=== PATIENT | female | born 2000 | race African-American/Black ===

== ENCOUNTER 2020-06-26 05:50 | Observation (INO) ==
--- NOTE | 2020-06-24 16:41 | Anesthesiology Consultation ---
Date of Service June 24, 2020 Assessment & Plan (1) Encounter for pre-operative examination: Chart Review Chart Review: Acceptable Risk for Surgery (pending preop Covid testing vs rapid Scott test DOS ) and Patient NOT seen in Pre Admission Testing - Check test AM DOS Per nursing assessment 06/24/2020, patient traveled to [place] 05/30/20- 06/07/20 to see family and have wisdom teeth removed. Wears appropriate PPE. No known Covid positive contacts or Covid related symptoms. Pt attends [employer] and had random Covid testing done 06/14/20- results negative. Pt unaware that Covid testing needed done preoperatively. Covid test not done until 06/25/20= results pending. Dr. Vera discussed case with Dr. Bhagat who approved patient to proceed with surgery as scheduled. Scott test should be performed DOS if results are not back (anesthesiologist will need to order DOS if needed). Recommend full PPE and rule since patient is [employer] student per Dr. Bhagat. History Surgery Operation Date: 06/26/20 07:15 Proposed Procedures p Exam Under Anesthesia, Incision and Drainage of Vaginal Cyst - Kalin Vera MD Height/Weight Height: 5 ft 3.25 in Weight: 57.606 kg Allergies Allergy/AdvReac Type Severity Reaction Status Date / Time No Known Allergies Allergy Unverified 06/24/20 15:48 Medications Home Medications Medication Instructions Recorded Confirmed Last Taken ibuprofen 600 mg PO Q6H PRN #20 tab 06/17/20 06/24/20 Unknown sumatriptan succinate [Imitrex] 100 mg PO UD PRN 06/17/20 06/24/20 Unknown trazodone 50 mg PO HS 06/17/20 06/24/20 06/16/20 etonogestrel [Nexplanon] 68 mg SUBDERMAL UD 06/24/20 06/24/20 Unknown lamotrigine 25 mg PO QAM 06/24/20 06/24/20 Unknown rizatriptan 10 mg PO UD PRN 06/24/20 06/24/20 Unknown Past Medical History Medical History (Updated 06/24/20 @ 16:49 by Whit Martinez PA-C) Migraines Presumed secondary to medication list Neurofibromatosis Past Family History Family History Other No family history of adverse response to anesthesia Past Surgical History Surgical History H/O wisdom tooth extraction History of surgery x3 tumors removed from Right shoulder/neck area Social History Smoking Status: Never smoker Do You Dip or Chew Tobacco: No Hx Alcohol Use: No Hx Substance Use: No substance use type: does not use Testing Laboratory Results Laboratory Tests 06/17/20 06/17/20 06/17/20 13:00 13:00 13:00 WBC 5.80 Hgb 13.7 Hct 40.4 Plt Count 255 PT 11.0 INR 1.0 APTT 29.1 Sodium 141 Potassium 3.8 Chloride 113 H Carbon Dioxide 25 BUN 9 Creatinine 0.78 Glucose 92 06/17/20= UA: 3+ blood, >30 urine RBC, 5-10 urine epithel cells
--- NOTE | 2020-06-25 11:09 | Progress Note ---
Date of Service June 25, 2020 Subjective Pt discussed with Dr Conde Pt is in excruciating pain from the cyst. Plan is to do exam under anesthesia. I&d the cyst to give her pain relief
[2020-06-26] MEDS ORDERED: LR 15ML/HR IV SCH (06:00)
[2020-06-26] MEDS: LACTATED RINGER'S 1,000 ML IV SCH ×4 (06:41→17:36)
[2020-06-26] MEDS ORDERED: MIDAZOLAM HCL 1 MG/ML 2ML VIAL ONE (06:51)
[2020-06-26] MEDS ORDERED: LIDOCAINE HCL 2% 2 ML VIAL/AMP(20MG/ML) INFIL ONE (06:51)
[2020-06-26] MEDS ORDERED: PROPOFOL IV EMULSION 10 MG/ML 20 ML VIAL IV ONE (06:51)
[2020-06-26] MEDS ORDERED: ONDANSETRON INJ 2 MG/ML 2 ML VIAL ONE (06:51)
[2020-06-26] MEDS ORDERED: fentaNYL citrate 100 MCG/2 ML VIAL ONE ×3 (06:51→09:12)
[2020-06-26] MEDS ORDERED: DEXAMETHASONE SOD INJ 4 MG/ML VIAL ONE (06:51)
--- NOTE | 2020-06-26 07:13 | History & Physical Bridge Note ---
Date of Service June 26, 2020 History & Physical Bridge Note I have examined the patient, reviewed the History & Physical and in the interval since the performance of the History & Physical I have noted the following changes of clinical significance: no changes noted
[2020-06-26] MEDS ORDERED: METOCLOPRAMIDE HCL INJ 5 MG/ML 2 ML VIAL IV PRN (07:15)
[2020-06-26] MEDS ORDERED: PROMETHAZINE HCL 12.5 MG in SODIUM CHLORIDE 0.9% 50 ML IV PRN (07:15)
[2020-06-26] MEDS ORDERED: ONDANSETRON INJ 2 MG/ML 2 ML VIAL IV PRN ×2 (07:15→09:21)
[2020-06-26] MEDS ORDERED: ePHEDrine sulfate 50 MG/ML AMP IV PRN (07:15)
[2020-06-26] MEDS ORDERED: ATROPINE SULFATE 0.1 MG/ML 10ML SYR IV PRN (07:15)
[2020-06-26] MEDS ORDERED: PREMARIN VAG CRM 14 APPLN/30 GM TUBE ONE (08:25)
[2020-06-26] MEDS ORDERED: cefOXitin 2,000 MG in DEXTROSE 5% 50 ML IV SCH (09:00)
[2020-06-26] MEDS ORDERED: PROMETHAZINE HCL 25 MG in SODIUM CHLORIDE 0.9% 50 ML IV PRN (09:21)
[2020-06-26] MEDS: fentaNYL citrate 100 MCG/2 ML VIAL IV PRN ×2 (09:25→09:34)
--- NOTE | 2020-06-26 09:28 | Post Operative Brief Note ---
Immediate Post Op Note v1 Date of Surgery June 26, 2020 Pre & Post Diagnosis Operation Date: 06/26/20 07:15 Pre-Op Diagnosis: Vaginal Cyst Post-Op Diagnosis: Vaginal Cyst I identified the patient and participated in the time-out.: Yes Procedure Operation Date: 06/26/20 07:15 Actual Procedures p Exam Under Anesthesia, Incision and Drainage of Vaginal Cyst - Kalin Vera MD Surgeon Kalin Vera MD Substance Abuse Clinician dr Saez Estimated Blood Loss 15 Findings Consistent with Post-Op Diagnosis
[2020-06-26] MEDS: HYDROmorphone INJ 2 MG/ML SYR/VIAL IV PRN ×6 (09:45→17:26)
--- NOTE | 2020-06-26 10:37 | Operative Report (OR) ---
DATE OF OPERATION: 06/26/2020 INDICATION FOR SURGERY: This is a 19-year-old with severe vaginal and pelvic pain. The patient was found to have suspected Katherine's cyst on ultrasound and CT scan. The patient's pain was so excruciating that the pelvic exam could not be done in the office. Decision was therefore made to examine the patient under anesthesia and to incise, drain or remove the cyst wall. PREOPERATIVE DIAGNOSES: Pelvic pain, vaginal pain, suspected vaginal wall cyst. POSTOPERATIVE DIAGNOSES: Pelvic pain, vaginal pain, suspected vaginal wall cyst. PROCEDURE: 1. Examination under anesthesia. 2. Removal of vaginal wall cyst. SURGEON: Kalin Vera MD. ALL SOURCE COLLECTION MANAGER: José Saez MD. FINDINGS: Large right vaginal wall cyst extending to the rectum. There was copious amount of sebaceous tissue. Cervix and risks of vaginal exam on arrival was unremarkable. ESTIMATED BLOOD LOSS: 15 mL. URINE OUTPUT: 50 mL clear urine at end of the procedure. INTRAVENOUS FLUIDS: 700 mL. COMPLICATIONS: None. DRAINS: None. ANESTHESIA: General. PATHOLOGY: Sebaceous cyst and cyst wall. DISPOSITION: Stable to recovery room. DESCRIPTION OF PROCEDURE: The patient was taken to the operating room where she was prepped and draped in normal sterile fashion in dorsal lithotomy position. Bladder was catheterized and 50 mL of clear urine was obtained. Examination of the vagina showed a right vaginal wall cyst. The rest of the vagina otherwise appeared grossly normal. The cyst wall extended all the way down to the rectum. An incision was made with a scalpel through the vaginal mucosa into the cyst. At this point, the sebaceous tissue and the cyst was identified. Further exploration showed that the cyst wall extended posteriorly into the vagina and also inferiorly into the rectum. Copious amount of the sebaceous cyst was removed. At this point, because of the extent of the sebaceous cyst, decision was made to remove the cyst wall entirely.. The cyst wall was carefully dissected. The dissection extended posterioly towards the vaginal cervical junction and inferiorly in the right vaginal wall towards the rectum.. Once the entire cyst was removed, copious amount of irrigation was used to irrigate the cavity. The dissection extended into the rectum and the rectal mucosa was breeched. With a finger in the rectum one could see the extent of the rectal mucosa. The rectal mucosa was closed first with a 3-0 Vicryl. Two subsequent layer closures were performed with 0 Vicryl in addition to the previous layer, making the closure 3 layer process. There was good integrity after the closure from the rectal exam. The rest of the vaginal wall laceration was also closed in 3 layers with Vicryl stitch. At end of the closure, there was good hemostasis. Rectal exam repeated again showed good sphincter tone. There were no sutures palpated in the rectum. All instruments were removed from the vagina and rectum and accounted for x2 including sponges, needles and retractors. The patient is sent to recovery in stable condition. I attest to the content of the Intraoperative Record and any orders documented therein. Any exceptions are noted below. MTDD
--- NOTE | 2020-06-26 10:45 | Anesthesiology Progress Note ---
Date of Service June 26, 2020 Anesthesia Post Procedure Vital Signs Vital Signs: Temp Pulse Pulse Resp BP BP Pulse Ox 06/26/20 10:30 89 12 117/82 100 06/26/20 10:20 87 15 111/79 100 06/26/20 10:10 81 16 121/78 100 06/26/20 10:00 85 14 114/81 100 06/26/20 09:50 81 14 112/86 100 06/26/20 09:40 95 H 12 123/76 100 06/26/20 09:30 88 14 119/80 100 06/26/20 09:22 36.5 C 102 H 20 124/88 100 06/26/20 06:41 37.2 C 87 16 125/82 100 Pain Intensity Lower Abdomen: Pain Intensity: 9 Rectal: Pain Intensity: 9 Transfer of Care Handoff Completed per policy Notes Mental Status: alert / awake / arousable and participated in evaluation Patient Amnestic to Procedure: Yes Nausea / Vomiting: adequately controlled Pain: adequately controlled Airway Patency, RR, SpO2: stable & adequate BP & HR: stable & adequate Hydration State: stable & adequate Anesthetic Complications: no major complications apparent
[2020-06-26] MEDS: KETOROLAC 30 MG/ML VIAL IV PRN ×2 (13:53→21:07)
[2020-06-26] MEDS: ceFAZolin 1000MG 1,000 MG/7.5 ML SYR IV SCH ×2 (14:38→22:58)
[2020-06-26] MEDS ORDERED: LIDOCAINE 2% JELLY 5 ML TUBE ONE (18:01)
[2020-06-26] MEDS ORDERED: SUMAtriptan succinate 100 MG TAB PO ONE (18:42)
[2020-06-26] MEDS: DOCUSATE SODIUM 100 MG CAP PO SCH (20:58)
[2020-06-26] MEDS ORDERED: traZODone HCL 50 MG TAB PO ONE (21:00)
[2020-06-27] MEDS: LACTATED RINGER'S 1,000 ML IV SCH ×3 (02:43→17:10)
[2020-06-27] MEDS: KETOROLAC 30 MG/ML VIAL IV PRN (04:39)
[2020-06-27] MEDS: oxyCODONE/ACETAMINOPHEN 5mg/325mg TAB PO PRN ×5 (05:38→23:05)
[2020-06-27 06:05] LABS: Basophils # (auto) 0.02 K/uL (0-0.2); Basophils % (auto) 0.3 %; Eosinophils # (auto) 0.03 K/uL (0-0.5); Eosinophils % (auto) 0.4 %; Hematocrit (blood only) 31.3 % (37-47); Hemoglobin 10.7 g/dL (12.0-16.0); Immature Granulocytes # (auto) 0.01 K/uL (0.00-0.02); Immature Granulocytes % (auto) 0.1 %; Lymphocytes # (auto) 2.35 K/uL (1.2-3.4); Lymphocytes % (auto) 30.4 %; Mean Corpuscular Hemoglobin 32.2 pg (25-34); Mean Corpuscular Hgb Conc 34.2 g/dL (32-36); Mean Corpuscular Volume 94.3 fL (80-100); Mean Platelet Volume 8.6 fL (7.4-10.4); Monocytes # (auto) 0.64 K/uL (0.11-0.59); Monocytes % (auto) 8.3 %; Neutrophils # (auto) 4.68 K/uL (1.4-6.5); Neutrophils % (auto) 60.5 %; Platelet Count 234 K/uL (130-400); RDW Standard Deviation 44.9 fL (36.4-46.3); Red Blood Count 3.32 M/uL (4.2-5.4); White Blood Count 7.73 K/uL (4.8-10.8)
[2020-06-27] MEDS: ceFAZolin 1000MG 1,000 MG/7.5 ML SYR IV SCH (07:30)
[2020-06-27] MEDS: DOCUSATE SODIUM 100 MG CAP PO SCH ×2 (09:21→19:24)
[2020-06-27] MEDS: lamoTRIgine 25 MG TAB PO SCH (09:22)
[2020-06-27] MEDS ORDERED: BENZOCAINE/MENTHOL 18 LOZ/1 BOX MT PRN (10:18)
[2020-06-27] MEDS: metroNIDAZOLE 500 MG TAB PO SCH (17:12)
[2020-06-27] MEDS: IBUPROFEN 600 MG TAB PO PRN ×2 (18:32→23:05)
[2020-06-28] MEDS: LACTATED RINGER'S 1,000 ML IV SCH (01:12)
[2020-06-28] MEDS: IBUPROFEN 600 MG TAB PO PRN ×5 (03:03→22:27)
[2020-06-28] MEDS: oxyCODONE/ACETAMINOPHEN 5mg/325mg TAB PO PRN ×5 (03:03→22:27)
[2020-06-28 06:45] LABS: Basophils # (auto) 0.02 K/uL (0-0.2); Basophils % (auto) 0.2 %; Eosinophils % (auto) 1.2 %; Hematocrit (blood only) 33.5 % (37-47); Hemoglobin 11.4 g/dL (12.0-16.0); Immature Granulocytes # (auto) 0.02 K/uL (0.00-0.02); Immature Granulocytes % (auto) 0.2 %; Lymphocytes # (auto) 2.74 K/uL (1.2-3.4); Lymphocytes % (auto) 32.3 %; Mean Corpuscular Hemoglobin 31.9 pg (25-34); Mean Corpuscular Volume 93.8 fL (80-100); Mean Platelet Volume 8.7 fL (7.4-10.4); Monocytes # (auto) 0.73 K/uL (0.11-0.59); Monocytes % (auto) 8.6 %; Neutrophils # (auto) 4.87 K/uL (1.4-6.5); Neutrophils % (auto) 57.5 %; Platelet Count 243 K/uL (130-400); RDW Coefficient of Variation 12.8 % (11.5-14.5); RDW Standard Deviation 44.4 fL (36.4-46.3); Red Blood Count 3.57 M/uL (4.2-5.4); White Blood Count 8.48 K/uL (4.8-10.8)
[2020-06-28] MEDS: DOCUSATE SODIUM 100 MG CAP PO SCH ×2 (08:33→21:12)
[2020-06-28] MEDS: metroNIDAZOLE 500 MG TAB PO SCH ×2 (08:33→21:12)
--- NOTE | 2020-06-28 08:50 | Obstetrical Progress Note ---
Date of Service June 28, 2020 Assessment & Plan Admission and Anticipated Discharge Date Admission Date: June 26, 2020 Subjective Patient is seen and examined. She feels better. Pain is under control with oral meds. Ambulating without dizziness Voiding without difficulty Tolerating regular diet with out vomiting, nausea+ Flatus + BM none Bleeding is minimal No fever/ chills/ CP/ SOB/ N&V/ Leg pain Vital Signs Temp Pulse Resp BP Pulse Ox 06/28/20 03:05 36.7 C 74 18 98/67 L 100 06/27/20 23:05 36.9 C 74 18 107/58 L 100 Lab Results 06/26/20 06/26/20 06/26/20 Range/Units 06:00 06:00 06:33 WBC (4.8-10.8) K/uL RBC (4.2-5.4) M/uL Hgb (12.0-16.0) g/dL Hct (37-47) % MCV (80-100) fL MCH (25-34) pg MCHC (32-36) g/dL RDW Std Deviation (36.4-46.3) fL RDW Coeff of Bonnie (11.5-14.5) % Plt Count (130-400) K/uL MPV (7.4-10.4) fL Immature Gran % (Auto) % Neut % (Auto) % Lymph % (Auto) % Mccreary % (Auto) % Eos % (Auto) % Baso % (Auto) % Neut # (Auto) (1.4-6.5) K/uL Lymph # (Auto) (1.2-3.4) K/uL Mccreary # (Auto) (0.11-0.59) K/uL Eos # (Auto) (0-0.5) K/uL Baso # (Auto) (0-0.2) K/uL Immature Gran # (Auto) (0.00-0.02) K/uL POC Ur Test NEG (NEG) COVID-19 Eval [facility] SARS-CoV-2, RNA, NAAT NEGATIVE (NEGATIVE) 06/27/20 06/28/20 Range/Units 05:51 06:25 WBC 7.73 8.48 (4.8-10.8) K/uL RBC 3.32 L 3.57 L (4.2-5.4) M/uL Hgb 10.7 L 11.4 L (12.0-16.0) g/dL Hct 31.3 L 33.5 L (37-47) % MCV 94.3 93.8 (80-100) fL MCH 32.2 31.9 (25-34) pg MCHC 34.2 34.0 (32-36) g/dL RDW Std Deviation 44.9 44.4 (36.4-46.3) fL RDW Coeff of Bonnie 13.0 12.8 (11.5-14.5) % Plt Count 234 243 (130-400) K/uL MPV 8.6 8.7 (7.4-10.4) fL Immature Gran % (Auto) 0.1 0.2 % Neut % (Auto) 60.5 57.5 % Lymph % (Auto) 30.4 32.3 % Mccreary % (Auto) 8.3 8.6 % Eos % (Auto) 0.4 1.2 % Baso % (Auto) 0.3 0.2 % Neut # (Auto) 4.68 4.87 (1.4-6.5) K/uL Lymph # (Auto) 2.35 2.74 (1.2-3.4) K/uL Mccreary # (Auto) 0.64 H 0.73 H (0.11-0.59) K/uL Eos # (Auto) 0.03 0.10 (0-0.5) K/uL Baso # (Auto) 0.02 0.02 (0-0.2) K/uL Immature Gran # (Auto) 0.01 0.02 (0.00-0.02) K/uL POC Ur Test (NEG) COVID-19 Eval Order SARS-CoV-2, RNA, NAAT (NEGATIVE) PE: General: Alert, orientedx3, NAD CVS: S1S2 RRR Lungs; CTAB Abd: soft, NT, ND, BS+ Perineum intact, no swelling, bleeding minimal Ext; NT, no edema AP: 19 yo s/p excision of vaginal cyst, pod# 2 VSS Afebrile doing better Still nausea+, low apetite No BM yet Plan to start Reglan and MOM Continue routine postop care Encourage ambulation, PO intake All questions were answered d/w Dr Vera D/C home in am Results & Data ([facility]) Vital Signs (Past 12 Hours) Vital Signs Temp Pulse Resp BP Pulse Ox 06/28/20 03:05 36.7 C 74 18 98/67 L 100 06/27/20 23:05 36.9 C 74 18 107/58 L 100
[2020-06-28] MEDS: METOCLOPRAMIDE HCL 5 MG TABLET PO SCH ×4 (09:13→23:31)
[2020-06-28] MEDS: MAGNESIUM HYDROXIDE SUSP 30 ML UDC PO SCH (09:14)
[2020-06-28] MEDS: lamoTRIgine 25 MG TAB PO SCH (11:30)
[2020-06-28] MEDS ORDERED: BENZOCAINE 20% AER SPR 82.5 GM CAN EXT PRN (14:35)
[2020-06-28] MEDS: LIDOCAINE 2% JELLY 5 ML TUBE EXT PRN (17:13)
[2020-06-29] MEDS: oxyCODONE/ACETAMINOPHEN 5mg/325mg TAB PO PRN ×3 (04:55→15:11)
[2020-06-29] MEDS: IBUPROFEN 600 MG TAB PO PRN ×3 (04:55→15:09)
[2020-06-29 05:55] LABS: Mean Corpuscular Hgb Conc 33.4 g/dL (32-36); Mean Platelet Volume 8.8 fL (7.4-10.4); Platelet Count 265 K/uL (130-400)
[2020-06-29] MEDS: METOCLOPRAMIDE HCL 5 MG TABLET PO SCH ×2 (06:03→11:34)
[2020-06-29 06:18] LABS: Basophils # (auto) 0.04 K/uL (0-0.2); Basophils % (auto) 0.6 %; Eosinophils # (auto) 0.13 K/uL (0-0.5); Eosinophils % (auto) 1.9 %; Hematocrit (blood only) 34.1 % (37-47); Hemoglobin 11.4 g/dL (12.0-16.0); Immature Granulocytes # (auto) 0.02 K/uL (0.00-0.02); Immature Granulocytes % (auto) 0.3 %; Lymphocytes # (auto) 2.28 K/uL (1.2-3.4); Lymphocytes % (auto) 33.2 %; Mean Corpuscular Volume 92.7 fL (80-100); Monocytes # (auto) 0.57 K/uL (0.11-0.59); Monocytes % (auto) 8.3 %; Neutrophils # (auto) 3.83 K/uL (1.4-6.5); Neutrophils % (auto) 55.7 %; RBC Morphology Unremarkable; RDW Coefficient of Variation 12.7 % (11.5-14.5); RDW Standard Deviation 43.1 fL (36.4-46.3); Red Blood Count 3.68 M/uL (4.2-5.4); White Blood Count 6.87 K/uL (4.8-10.8)
[2020-06-29] MEDS: metroNIDAZOLE 500 MG TAB PO SCH (09:20)
[2020-06-29] MEDS: MAGNESIUM HYDROXIDE SUSP 30 ML UDC PO SCH (09:21)
[2020-06-29] MEDS: DOCUSATE SODIUM 100 MG CAP PO SCH (09:21)
[2020-06-29] MEDS: lamoTRIgine 25 MG TAB PO SCH (09:21)
[2020-06-29] MEDS: LIDOCAINE 2% JELLY 5 ML TUBE EXT PRN (11:43)
--- NOTE | 2020-06-29 14:30 | Gynecologic Progress Note ---
Date of Service June 29, 2020 Assessment & Plan (1) Katherine's duct cyst: POD#3 pt doing well No BM discussed disch home with instructions pt wishes to go home Admission and Anticipated Discharge Date Admission Date: June 26, 2020 Review of Systems Review of Systems: All systems reviewed & are unremarkable except as noted in HPI & below Physical Exam Constitutional: WD/WN, vitals as above Eyes: PERRL, conjunctivae normal, anicteric sclerae ENMT: external ear and nose normal, oropharynx normal Neck: trachea midline, no thyromegaly Respiratory: normal respiratory effort, lungs clear to auscultation Cardiovascular: RRR, no murmur, no edema Chest (Breasts): normal inspection/palpation of breasts Gastrointestinal (Abdomen): normal bowel sounds, soft, nontender, no hepatosplenomegaly Musculoskeletal: no cyanosis or clubbing, extremities motor strength 5/5 Skin: + incision (Incision clean,dry and intact) Neurologic: patellar DTR's 2+ bilat, sensation intact Psychiatric: A+Ox3, euthymic affect Genitourinary: no vaginal lesions, no adnexal mass Lymphatic: no cervical or axillary lymphadenopathy Results & Data ([facility]) Vital Signs (Past 12 Hours) Vital Signs Temp Pulse Resp BP Pulse Ox 06/29/20 11:40 36.9 C 79 16 118/68 98 06/29/20 09:28 37.3 C 84 18 92/55 L 97
--- NOTE | 2020-06-30 12:36 | Discharge Summary (DS) ---
CHIEF COMPLAINT: Vaginal cyst with severe abdominal pelvic pain. HISTORY OF PRESENT ILLNESS: This is a 19-year-old G0, who underwent surgery on 06/26/2020 for a vaginal cyst. Details of surgery is in the surgical note. Surgery otherwise was unremarkable. The patient did well in recovery. She stayed in the hospital for antibiotic therapy and pain control and is being discharged home today, 06/29/2020. The patient continues to have pain, which she ranks 5/6. She has not been able to move her bowels. Vitals are otherwise stable and the patient is able to ambulate and tolerate p.o. food and medication. PAST MEDICAL HISTORY: History of fibromyalgia and migraines. PAST SURGICAL HISTORY: History of dental surgery. FAMILY HISTORY: Noncontributory. SOCIAL HISTORY: The patient is a student, lives in dormitory. Denies drug, tobacco or alcohol use. ALLERGIES: The patient has no known drug allergies. REVIEW OF SYSTEMS: Negative except as dictated in HPI. PHYSICAL EXAMINATION: VITAL SIGNS: On 06/29/2020 showed blood pressure of 118/68, pulse of 79, respiration of 16, temperature of 36.9. HEART: S1, S2, regular rhythm and rate. LUNGS: Clear to auscultation bilaterally. ABDOMEN: Nontender, nondistended, no guarding, no rebound. PELVIC: The patient has minimal discomfort and minimal bleeding. EXTREMITIES: No cyanosis, clubbing or edema. LABORATORY DATA: Hemoglobin is 11.4, hematocrit is 34.1. CONDITION ON DISCHARGE: Stable. OPERATION: Right vaginal cyst incision and drainage with rectal repair. DISCHARGE DIAGNOSES: Postoperative after vaginal laceration and rectal repair. PLAN ON DISCHARGE: The patient is discharged home with instructions regarding activity, diet, followup appointments and medications.
== END 2020-06-29 15:30 | disposition home or self-care (01) ==
LOC: ASU 05:50 → 4N 09:17 → INTOOBSV 09:17